=== PATIENT | male | born 1945 | race Caucasian/White ===

== ENCOUNTER 2022-05-02 20:21 | Inpatient (IN) | payer OTHER ==
[~2022-05-02] VITALS: Ht 165.1 cm; Wt 59.0 kg
--- NOTE | 2022-05-02 20:45 | NUR ---
pt bib ra for c/o left hip pain.
[2022-05-02] MEDS ORDERED: SIMV10TA98 PO (21:07)
[2022-05-02] MEDS ORDERED: DABI110C PO (21:07)
[2022-05-02] MEDS ORDERED: LOSA50TA39 PO (21:07)
[2022-05-02] MEDS ORDERED: METF-440 PO (21:07)
[2022-05-02] MEDS ORDERED: TERA5CAP4 PO (21:07)
[2022-05-02] MEDS ORDERED: FINA5TAB11 PO (21:07)
[2022-05-02] MEDS ORDERED: MORPHINE SULFATE 2 MG/1 ML DISP.SYRIN IM ONE (21:15)
[2022-05-02] MEDS ORDERED: KETOROLAC TROMETHAMINE 30 MG INJ IM ONE (21:15)
--- NOTE | 2022-05-02 21:27 | NUR ---
pt taken for cat scan.
[2022-05-02 21:41] LABS: *BILIRUBIN,URIN NEGATIVE (NEGATIVE); *BLOOD, URINE 1+ (NEGATIVE); *CLARITY,URINE CLEAR (CLEAR); *COLOR,URINE STRAW (YELLOW); *KETONES,URINE NEGATIVE (NEGATIVE); *UROBILINOGEN,URINE 0.2 E.U./dl (NORMAL); LEUKOCYTE ESTERASE ,URINE NEGATIVE (NEGATIVE); NITRITE, URINE NEGATIVE (NEGATIVE); PH,URINE 8.5 (5.0-8.0); UGLUCOSE NEGATIVE (NEGATIVE)
--- NOTE | 2022-05-02 21:44 | NUR ---
pt returned from cat scan.
[2022-05-02 21:47] LABS: BACTERIA,URINE NONE SEEN /HPF (NONE SEEN); SQUAMOUS EPITHELIAL CELL,UR NONE SEEN /HPF (NONE SEEN); WBC,URINE NONE SEEN /HPF (0-3)
[2022-05-02 21:52] LABS: HEMATOCRIT 37.6 % (36.7-47.1); MEAN CORPUSCULAR HEMOGLOBIN 31.4 uug (23.8-33.4); MEAN CORPUSCULAR VOLUME 91.9 fL (73.0-96.2); PLATELET COUNT (AUTO) 135 K/uL (152-348)
[2022-05-02 22:05] LABS: CARBON DIOXIDE 30 mmol/L (21-32); CHLORIDE 103 mmol/L (98-107); CREATININE 1.1 mg/dL (0.6-1.3); GLUCOSE 141 mg/dL (74-106); POTASSIUM 3.7 mmol/L (3.5-5.1); UREA NITROGEN, BLOOD 14 mg/dL (7-18)
[2022-05-02 22:14] LABS: ALANINE AMINOTRANSFERASE 32 U/L (16-63); ALKALINE PHOSPHATASE 77 U/L (50-136); ASPARTATE AMINOTRANSFERASE 25 U/L (15-37); BILIRUBIN,DIRECT 0.2 mg/dL (0.0-0.2); BILIRUBIN,TOTAL 0.7 mg/dL (0.2-1.0)
[2022-05-02 22:22] LABS: ETHANOL < 3 MG/DL (0-0)
--- NOTE | 2022-05-02 22:59 | NUR ---
call to [facility] for possible tr. requested by Dr. Romero.
--- NOTE | 2022-05-02 23:19 | NUR ---
multiple calls were placed to [place] unable to reach anyone.
[2022-05-02] MEDS ORDERED: MORPHINE SULFATE 2 MG/1 ML DISP.SYRIN ONE (23:28)
[2022-05-02] MEDS ORDERED: MORPHINE SULFATE 2 MG/1 ML DISP.SYRIN IV ONE (23:30)
--- NOTE | 2022-05-02 23:30 | NUR ---
[facility] Thelma sung called update on status of pt given.
--- NOTE | 2022-05-03 00:14 | NUR ---
Informed by Dr. Romero that pt is accepted to [place].
[2022-05-03] MEDS ORDERED: MORPHINE SULFATE 2 MG/1 ML DISP.SYRIN IV ONE ×2 (00:30→06:30)
[2022-05-03] MEDS ORDERED: MORPHINE SULFATE 2 MG/1 ML DISP.SYRIN ONE ×2 (00:51→06:39)
--- NOTE | 2022-05-03 02:55 | NUR ---
[facility] still no accepting md noted and no accepting hospital accepted at this time.
--- NOTE | 2022-05-03 03:11 | NUR ---
MEETA FROM [facility] CALLED BACK AND STATED THEY HAVE NO BEDS AVAILABLE IN ANY [place]. HE GAVE AUTH TO STAY.
--- NOTE | 2022-05-03 05:16 | NUR ---
Paged Epic panel directional driller for admission of patient. Waiting on Allison Hendricks NP to call back.
--- NOTE | 2022-05-03 05:23 | NUR ---
pt resting, denies pain.
--- NOTE | 2022-05-03 05:42 | NUR ---
call back was received from TONIA Daniel. Call was placed to Dr. Becker ortho surgeon.
[2022-05-03] MEDS ORDERED: MORPHINE SULFATE 2 MG/1 ML DISP.SYRIN IV PRN (05:45)
[2022-05-03] MEDS ORDERED: REMEDY ESSENTIAL ZINC PASTE 113 GM TP PRN (05:45)
[2022-05-03] MEDS ORDERED: ONDANSETRON 4 MG/2 ML VIAL IV PRN (05:45)
[2022-05-03] MEDS ORDERED: MAGNESIUM HYDROXIDE 30 ML LIQUID UDC PO PRN (05:45)
[2022-05-03] MEDS ORDERED: IV D5/ 0.9% NACL 1,000 ML IV PRN (06:00)
--- NOTE | 2022-05-03 08:48 | NUR ---
DR Becker, surgeon, spoke to Dr Abdi.
[2022-05-03 10:06] VITALS: BP 169/65
[2022-05-03] MEDS: PANTOPRAZOLE SODIUM 40 MG VIAL IV SCH (10:25)
[2022-05-03] MEDS: LOSARTAN POTASSIUM 50 MG TABLET PO SCH ×2 (10:26→21:19)
--- NOTE | 2022-05-03 11:31 | NUR ---
Patient alert, oriented x4, no sob, resp even nonlabored, skin warm and dry to touch, no skin issues noted, kept NPO, only losartan administered with sip of water, okayed with dr soria to give one tablet of losartan with sip of water. asked OR nurse if mayer need to be inserted, per OR nurse, no need to insert Mayer,
[2022-05-03] MEDS ORDERED: BUPIVACAINE/EPI PF 0.5% 10 ML VIAL ONE (11:34)
--- NOTE | 2022-05-03 12:00 | NUR ---
Patient taken to OR by OR nurses
[2022-05-03] MEDS ORDERED: FENTANYL CITRATE 100 MCG/2 ML AMPUL ONE (12:36)
[2022-05-03] MEDS ORDERED: HYDROMORPHONE 2 MG/1 ML DISP.SYRIN ONE (12:37)
[2022-05-03] MEDS ORDERED: ROCURONIUM BROMIDE 50 MG/5 ML VIAL ONE (12:37)
[2022-05-03] MEDS ORDERED: MIDAZOLAM HCL 2 MG/2 ML VIAL ONE (12:37)
[2022-05-03] MEDS ORDERED: VANCOMYCIN 1000 MG VIAL ONE (13:30)
[2022-05-03] MEDS ORDERED: GLYCOPYRROLATE 0.2 MG/ML VIAL IJ ONE (14:00)
[2022-05-03] MEDS ORDERED: PROPOFOL 200 MG/20 ML BOTTLE IV ONE (14:00)
[2022-05-03] MEDS ORDERED: METOCLOPRAMIDE HCL 10 MG/2 ML VIAL IV ONE (14:00)
[2022-05-03] MEDS ORDERED: ONDANSETRON 4 MG/2 ML VIAL IV ONE (14:00)
[2022-05-03] MEDS ORDERED: LIDOCAINE-MPF 2% 5 ML VIAL IJ ONE (14:00)
[2022-05-03] MEDS ORDERED: NEOSTIGMINE METHYLSULFATE 10 MG/10 ML VIAL IM ONE (14:00)
[2022-05-03] MEDS ORDERED: CEFAZOLIN 1 G VIAL IM ONE (14:00)
[2022-05-03] MEDS ORDERED: IV D5W-0.45% NS +20 KCL 1,000 ML IV PRN (15:15)
[2022-05-03 16:16] VITALS: BP 151/62
--- NOTE | 2022-05-03 16:16 | NUR ---
patient is back from after surgery, left hip hemiarthroplasty, dressing intact, no signs and symptoms of bleeding noted, patient desaturated to low 80s, supplemental oxygen provided, saturating at 98%, intermittently awake. continue to monitor Addendum: 05/03/22 at 1636 by MARISEL SHAW RN, RN Hip precautions are in place
--- NOTE | 2022-05-03 17:58 | NUR ---
patient is sleeping intermittently and still noted with confusion, on 2 liter nasal canula, saturating 97%, family was here, this technical writer released the soft wrist restrained, patient removed the nasal canula and desaturated to low 80s, soft wrist restrain instated again. left pedal pulse is strong, capilarry refit is less than 3 seconds, no distress noted, hip replacement precautions are in place.
--- NOTE | 2022-05-03 19:30 | NUR ---
Received patient lying in bed. Asleep but arouse to verbal stimuli. Alert to self only at this time. Speech garbled. In no acute distress. No signs or symptoms of pain or SOB. On O2 at 2LPM via NC in place. O2 sat at 100%. IV site on left AC intact and patent. IVF infusing. NSR on tele with HR of 68/min. Abduction pillow kin place. Safety measure initiated and call light within reached. Continue to monitor.
[2022-05-03 20:42] VITALS: BP 149/80
[2022-05-03] MEDS: CEFAZOLIN 1 G in IV DEXTROSE 5% 50 ML IV SCH (21:11)
[2022-05-04] MEDS: MORPHINE SULFATE 4 MG/1 ML DISP.SYRIN IV PRN ×2 (00:17→05:22)
[2022-05-04 04:17] VITALS: BP 143/65
[2022-05-04] MEDS: CEFAZOLIN 1 G in IV DEXTROSE 5% 50 ML IV SCH (04:20)
--- NOTE | 2022-05-04 05:01 | NUR ---
Patient more awake at this time. Check for any urine output but none found. Bladder scan done and shows >389ml of urine in the bladder. Patient is trying to go on a urinal but unable to. Informed SUBPOENA SERVER Eladio and ordered to place Crowley catheter. Order noted and will carry out.
[2022-05-04 06:57] LABS: HEMATOCRIT 33.5 % (36.7-47.1); MEAN CORPUSCULAR HEMOGLOBIN 31.3 uug (23.8-33.4); MEAN CORPUSCULAR VOLUME 92.5 fL (73.0-96.2); PLATELET COUNT (AUTO) 109 K/uL (152-348)
[2022-05-04 07:09] LABS: CARBON DIOXIDE 30 mmol/L (21-32); CHLORIDE 102 mmol/L (98-107); CREATININE 1.5 mg/dL (0.6-1.3); GLUCOSE 208 mg/dL (74-106); MAGNESIUM 1.8 mg/dL (1.8-2.4); PHOSPHOROUS 4.4 mg/dL (2.5-4.9); POTASSIUM 4.7 mmol/L (3.5-5.1); UREA NITROGEN, BLOOD 22 mg/dL (7-18)
--- NOTE | 2022-05-04 08:30 | NUR ---
RECEIVED PT ON BEDALERT AND AWAKE. PT HAVE LEFT HAND RESTRAINT. NOC SHIFT REPORTS THAT PT IS PULLING LINES LAST NIGHT.PT ON 2L NC SATURATING AT 97-98%. IV ACCESS ON LAC 20G INTACT AND PATENT. NO SOB ; NO -PAIN COMPLAIN.
[2022-05-04] MEDS: PANTOPRAZOLE SODIUM 40 MG VIAL IV SCH (08:42)
[2022-05-04] MEDS: LOSARTAN POTASSIUM 50 MG TABLET PO SCH ×2 (08:43→20:32)
--- NOTE | 2022-05-04 09:00 | NUR ---
DC RESTRAINT PT ALERT AND ORIENTED AND COMPLIANCE. SWITCHED TO SOFT DIET; PT TOLERATED DIET
[2022-05-04 11:54] VITALS: BP 138/63
[2022-05-04] MEDS: ACETAMINOPHEN 325 MG TABLET PO PRN ×2 (11:57→16:46)
--- NOTE | 2022-05-04 12:00 | NUR ---
SLIGHT ELEVATED TEMP 99.6. GAVE PRN TYLENOL WILL REASSESS AFTER 1HR
[2022-05-04] MEDS ORDERED: TAMS-3 PO (14:10)
[2022-05-04] MEDS ORDERED: CARV12.5 PO (14:10)
[2022-05-04] MEDS ORDERED: MEMA10TA PO (14:10)
[2022-05-04 15:35] VITALS: BP 110/57
[2022-05-04] MEDS: IV NS 1000 ML 1,000 ML IV PRN (16:46)
[2022-05-04] MEDS: HEPARIN SODIUM,PORCINE 5,000 UNITS/ML VIAL SQ SCH (20:34)
[2022-05-04 21:31] VITALS: BP 109/56
[2022-05-05 00:16] VITALS: BP 155/79
[2022-05-05 04:45] VITALS: BP 137/78
--- NOTE | 2022-05-05 04:47 | NUR ---
Pt slept throughout the night, denies pain at this time. No distress noted. Able to make needs known. IV site intact, running ordered fluids. Crowley draining to gravity. Safety maintained. Will endorse to day shift.
[2022-05-05] MEDS: PANTOPRAZOLE SODIUM 40 MG TABLET.DR PO SCH (06:13)
[2022-05-05] MEDS: IV NS 1000 ML 1,000 ML IV PRN ×2 (06:27→20:21)
[2022-05-05 06:41] LABS: MEAN CORPUSCULAR HEMOGLOBIN 31.5 uug (23.8-33.4); MEAN CORPUSCULAR VOLUME 91.7 fL (73.0-96.2); PLATELET COUNT (AUTO) 85 K/uL (152-348)
[2022-05-05 07:26] LABS: CARBON DIOXIDE 27 mmol/L (21-32); CHLORIDE 102 mmol/L (98-107); CREATININE 1.5 mg/dL (0.6-1.3); GLUCOSE 187 mg/dL (74-106); POTASSIUM 4.1 mmol/L (3.5-5.1); UREA NITROGEN, BLOOD 27 mg/dL (7-18)
[2022-05-05 07:45] LABS: MAGNESIUM 1.9 mg/dL (1.8-2.4); PHOSPHOROUS 3.1 mg/dL (2.5-4.9)
[2022-05-05] MEDS ORDERED: LACTULOSE 20 G/30 ML LIQUID UDC PO ONE (10:00)
[2022-05-05] MEDS: LOSARTAN POTASSIUM 50 MG TABLET PO SCH ×3 (10:52→22:05)
[2022-05-05] MEDS: HEPARIN SODIUM,PORCINE 5,000 UNITS/ML VIAL SQ SCH (10:54)
[2022-05-05] MEDS: ACETAMINOPHEN 325 MG TABLET PO PRN (11:26)
[2022-05-05 11:51] LABS: LYMPHOCYTES % (MANUAL) 11 % (20-40); MONOCYTES % (MANUAL) 9 % (2-10); NEUTROPHILS % (MANUAL) 80 % (42-75)
[2022-05-05 15:26] VITALS: BP 156/60
[2022-05-05] MEDS ORDERED: BISACODYL 10 MG SUPP.RECT RC ONE (17:45)
--- NOTE | 2022-05-05 17:58 | NUR ---
Pt complaining of abdominal pain and constipation from no BM for several days. Provided lactulose during shift but still no BM. Notified MD and obtained one time order of suppository dulcolax. Educated pt about medication, will endorse to arcade technician to administer PRN milk of magnesia if no BM. Comfort measures provided, call light within reach. Will continue to monitor.
[2022-05-05 20:00] VITALS: BP 145/70
[2022-05-05] MEDS: MORPHINE SULFATE 4 MG/1 ML DISP.SYRIN IV PRN (21:12)
--- NOTE | 2022-05-05 21:15 | NUR ---
PATIENT AWAKE IN BED. A/O X3. VS WNL. PATIENT HAD LARGE BM. F/C INTACT AND PATENT. DENIES ANY SOB. NO RESP. DISTRESS NOTED. DRESSING NOTED TO LEFT HIP, C/D/I. ABDUCTION PILLOW IN PLACE. NEW IV STARTED TO LEFT WRIST #22 GAUGE, WITH IVF INFUSING WELL. PATIENT C/O PAIN, GIVEN MORPHINE 4MG IV PRN PER LIST OF FIRST JOB IDEAS. CALL LIGHT IN REACH. ALL NEEDS ATTENDED. WILL CONTINUE TO MONITOR AND ASSESS.
[2022-05-06 04:00] VITALS: BP 163/71
[2022-05-06] MEDS: PANTOPRAZOLE SODIUM 40 MG TABLET.DR PO SCH (06:01)
[2022-05-06 07:37] LABS: HEMATOCRIT 27.1 % (36.7-47.1); MEAN CORPUSCULAR HEMOGLOBIN 32.2 uug (23.8-33.4); MEAN CORPUSCULAR VOLUME 92.1 fL (73.0-96.2); PLATELET COUNT (AUTO) 101 K/uL (152-348)
[2022-05-06 07:48] LABS: CREATININE 1.1 mg/dL (0.6-1.3)
[2022-05-06 08:03] LABS: MAGNESIUM 2.1 mg/dL (1.8-2.4); PHOSPHOROUS 2.2 mg/dL (2.5-4.9)
[2022-05-06] MEDS: LOSARTAN POTASSIUM 50 MG TABLET PO SCH ×2 (09:20→20:29)
[2022-05-06] MEDS ORDERED: DABIGATRAN ETEXILATE MESYLATE 150 MG CAPSULE PO SCH (11:15)
[2022-05-06 11:30] VITALS: BP 175/71
[2022-05-06] MEDS: TAMSULOSIN HCL 0.4 MG CAP.SR.24H PO SCH (14:46)
[2022-05-06] MEDS: MEMANTINE HCL 10 MG TABLET PO SCH ×2 (14:47→17:43)
[2022-05-06] MEDS: FINASTERIDE 5 MG TABLET PO SCH (14:47)
[2022-05-06] MEDS: METFORMIN HCL 500 MG TABLET PO SCH ×3 (14:47→17:46)
[2022-05-06 15:57] VITALS: BP 161/70
[2022-05-06] MEDS: IV NS 1000 ML 1,000 ML IV PRN (16:32)
[2022-05-06] MEDS: SENNOSIDES/DOCUSATE SODIUM TABLET PO SCH (16:40)
[2022-05-06] MEDS ORDERED: NEUTRA PHOS PACKET PO ONE (17:00)
[2022-05-06 20:00] VITALS: BP 151/54
[2022-05-06] MEDS: ACETAMINOPHEN 325 MG TABLET PO PRN (20:28)
[2022-05-07] MEDS: ACETAMINOPHEN 325 MG TABLET PO PRN (03:37)
[2022-05-07 05:00] VITALS: BP 144/61
[2022-05-07] MEDS: PANTOPRAZOLE SODIUM 40 MG TABLET.DR PO SCH (06:33)
[2022-05-07 07:25] LABS: HEMATOCRIT 25.6 % (36.7-47.1); MEAN CORPUSCULAR VOLUME 91.8 fL (73.0-96.2); PLATELET COUNT (AUTO) 120 K/uL (152-348)
[2022-05-07 07:40] LABS: PHOSPHOROUS 2.8 mg/dL (2.5-4.9); POTASSIUM 3.5 mmol/L (3.5-5.1)
[2022-05-07] MEDS: MEMANTINE HCL 10 MG TABLET PO SCH ×2 (08:51→16:53)
[2022-05-07] MEDS: TAMSULOSIN HCL 0.4 MG CAP.SR.24H PO SCH (08:51)
[2022-05-07] MEDS: SENNOSIDES/DOCUSATE SODIUM TABLET PO SCH (08:51)
[2022-05-07] MEDS: METFORMIN HCL 500 MG TABLET PO SCH ×2 (08:52→16:53)
[2022-05-07] MEDS: LOSARTAN POTASSIUM 50 MG TABLET PO SCH ×2 (08:52→21:04)
[2022-05-07] MEDS: FINASTERIDE 5 MG TABLET PO SCH (08:54)
--- NOTE | 2022-05-07 09:00 | NUR ---
pt awake alert and oriented, complaining of being constipated, took meds without any problem, left hip dsg dry and intact, abduction pillow in place, hip precautions observed, informed hospitalist of c/o constipation with orders- carried out, call light withinreachs
[2022-05-07] MEDS ORDERED: BISACODYL 10 MG SUPP.RECT RC ONE (09:15)
[2022-05-07] MEDS ORDERED: LACTULOSE 20 G/30 ML LIQUID UDC PO ONE (09:15)
[2022-05-07] MEDS ORDERED: SORBITOL 70% SOLUTION 30 ML UDC PO ONE (09:15)
[2022-05-07] MEDS ORDERED: POTASSIUM CHLORIDE 20 MEQ POWDER PACKET PO ONE (10:45)
[2022-05-07 11:00] VITALS: BP 127/61
--- NOTE | 2022-05-07 13:00 | NUR ---
noted some dry cough, incentive spirometry reinforced and explained importance- verbalized understanding did up to 1200-1500ml x 10, instructed to be done every hour, verbalized understanding
[2022-05-07] MEDS: IV NS 1000 ML 1,000 ML IV PRN (15:18)
[2022-05-07 16:00] VITALS: BP 127/73
--- NOTE | 2022-05-07 18:44 | NUR ---
incontinent of large amount of stool this shift, washed and kept clean and dry, hip precautions observed, needs attended and met, call light within reach, incentive spirometry done q 1h -
[2022-05-07 20:07] VITALS: BP 163/68
[2022-05-08] MEDS: MORPHINE SULFATE 4 MG/1 ML DISP.SYRIN IV PRN (02:50)
[2022-05-08 04:00] VITALS: BP 116/84
[2022-05-08] MEDS: IV NS 1000 ML 1,000 ML IV PRN (04:50)
[2022-05-08] MEDS: PANTOPRAZOLE SODIUM 40 MG TABLET.DR PO SCH (06:33)
--- NOTE | 2022-05-08 08:00 | NUR ---
Pt on abduction pillow. Pt alert and oriented x 4. Reinforce hip dislocation precautions. Pt denies any c/o pain. Bed Alarm on. Discussed proper pain managemnet with patient. PT verbalized understanding.
[2022-05-08] MEDS: MEMANTINE HCL 10 MG TABLET PO SCH ×2 (08:33→17:22)
[2022-05-08] MEDS: TAMSULOSIN HCL 0.4 MG CAP.SR.24H PO SCH (08:33)
[2022-05-08] MEDS: METFORMIN HCL 500 MG TABLET PO SCH ×2 (08:33→17:22)
[2022-05-08] MEDS: LOSARTAN POTASSIUM 50 MG TABLET PO SCH ×2 (08:33→20:20)
[2022-05-08] MEDS: SENNOSIDES/DOCUSATE SODIUM TABLET PO SCH (08:33)
[2022-05-08] MEDS: FINASTERIDE 5 MG TABLET PO SCH (08:33)
--- NOTE | 2022-05-08 12:00 | NUR ---
Pt is in no acute distress. call light is within reach.
[2022-05-08 12:09] VITALS: BP 174/65
[2022-05-08] MEDS: ENOXAPARIN SODIUM 40 MG/0.4 ML DISP.SYRIN SQ SCH (12:41)
[2022-05-08 16:12] VITALS: BP 168/68
--- NOTE | 2022-05-08 18:23 | NUR ---
Pt tolerated physical therapy today. Pt is in no acute distress. Pt tolerating soft finely chopped diet better than prior secondary to pt has not teeth.
[2022-05-08 20:03] VITALS: BP 170/64
[2022-05-08] MEDS ORDERED: SIMVASTATIN 10 MG TABLET PO SCH (21:00)
[2022-05-09] VITALS: BP 150/68
[2022-05-09] MEDS: ACETAMINOPHEN 325 MG TABLET PO PRN ×2 (02:04→16:44)
[2022-05-09 04:03] VITALS: BP 154/78
[2022-05-09] MEDS: PANTOPRAZOLE SODIUM 40 MG TABLET.DR PO SCH (06:29)
[2022-05-09 06:48] LABS: HEMATOCRIT 24.9 % (36.7-47.1); MEAN CORPUSCULAR HEMOGLOBIN 31.9 uug (23.8-33.4); PLATELET COUNT (AUTO) 176 K/uL (152-348)
[2022-05-09 07:09] LABS: MAGNESIUM 1.7 mg/dL (1.8-2.4); PHOSPHOROUS 3.8 mg/dL (2.5-4.9); POTASSIUM 3.4 mmol/L (3.5-5.1)
--- NOTE | 2022-05-09 08:00 | NUR ---
AWAKE ALERT AND VERBALLY RESPONSIVE FORGETFUL. REQUIRES MAX ASSIST WITH ADLS. CONTINUE PT, OT. SEEN BY HOSPITALIST REVIEWED LABS AND REPLACED
[2022-05-09] MEDS: TAMSULOSIN HCL 0.4 MG CAP.SR.24H PO SCH (08:12)
[2022-05-09] MEDS: FINASTERIDE 5 MG TABLET PO SCH (08:12)
[2022-05-09] MEDS: LOSARTAN POTASSIUM 50 MG TABLET PO SCH (08:12)
[2022-05-09] MEDS: MEMANTINE HCL 10 MG TABLET PO SCH ×2 (08:12→16:44)
[2022-05-09] MEDS: METFORMIN HCL 500 MG TABLET PO SCH ×2 (08:12→16:44)
[2022-05-09] MEDS: SENNOSIDES/DOCUSATE SODIUM TABLET PO SCH (08:13)
[2022-05-09] MEDS: ENOXAPARIN SODIUM 40 MG/0.4 ML DISP.SYRIN SQ SCH (08:14)
[2022-05-09] MEDS ORDERED: POTASSIUM CHLORIDE 20 MEQ POWDER PACKET GT ONE (08:45)
[2022-05-09] MEDS ORDERED: POTASSIUM CHLORIDE 20 MEQ TAB.PRT.SR PO ONE (08:45)
[2022-05-09] MEDS ORDERED: ENOXAPARIN SODIUM 40 MG/0.4 ML DISP.SYRIN SQ SCH (09:00)
[2022-05-09] MEDS ORDERED: DABIGATRAN ETEXILATE MESYLATE 150 MG CAPSULE PO SCH (09:00)
[2022-05-09] MEDS: MAGNESIUM SULFATE/D5W 100 ML IV SCH ×2 (10:19→11:06)
[2022-05-09 11:31] VITALS: BP 158/63
--- NOTE | 2022-05-09 12:00 | NUR ---
NO ACUTE CHANGE FROM MORNING ASSESSMENT
[2022-05-09] MEDS ORDERED: METF-440 PO (12:19)
[2022-05-09] MEDS ORDERED: SENN1TAB92 PO (12:19)
[2022-05-09] MEDS ORDERED: SIMV10TA98 PO (12:19)
[2022-05-09] MEDS ORDERED: FINA5TAB11 PO (12:19)
[2022-05-09] MEDS ORDERED: PANT40TA49 PO (12:19)
[2022-05-09] MEDS ORDERED: ACET325T53 PO (12:19)
[2022-05-09] MEDS ORDERED: Patient May Use Own Med- Md Ok PO (12:19)
[2022-05-09] MEDS ORDERED: MEMA10TA PO (12:19)
[2022-05-09] MEDS ORDERED: LOSA50TA3 PO (12:19)
[2022-05-09] MEDS ORDERED: TAMS-3 PO (12:19)
--- NOTE | 2022-05-09 14:12 | NUR ---
AWAITING PLACEMENT PER TUG BOAT ENGINEER
[2022-05-09 16:00] VITALS: BP 164/71
[2022-05-09] MEDS ORDERED: CLONIDINE HCL 0.1 MG TABLET PO ONE (16:45)
--- NOTE | 2022-05-09 18:40 | NUR ---
LEFT HIP INCISION WITH DERMABOND, NO PICTURE DONE AND PATIENT TO FOLLOW-UP WITH DR IKM. REPORT GIVEN TO [facility] (YOLIE FOR FOLLOW-UP)
[2022-05-09 20:03] VITALS: BP 118/51
--- NOTE | 2022-05-09 20:41 | NUR ---
Patient picked up by [facility] to transport patient to [facility]) in stable condition.All discharge papers and belongings given to patient.Patient denies pain or discomfort. On Ra saturating well at 97 %.VSS
== END 2022-05-09 20:35 | DRG 521 ==
LOC: ER 20:24 → MEDSURG3 05-03 08:26 → TELE3 05-03 11:39 → MEDSURG3 05-05 08:55
PROVIDERS: ADMIT Nurse Practitioner Acute Care; ATTEND Nurse Practitioner Acute Care
PROC: 0SRS0JA Replacement of Left Hip Joint, Femoral Surface with Synthetic Substitute, Uncemented, Open Approach (ICD-10-PCS; principal; 2022-05-03)
DX: S72.002A Fracture of unspecified part of neck of left femur, initial encounter for closed fracture (principal); N17.0 Acute kidney failure with tubular necrosis; I48.0 Paroxysmal atrial fibrillation; I44.0 Atrioventricular block, first degree; Z86.73 Personal history of transient ischemic attack (TIA), and cerebral infarction without residual deficits; W19.XXXA Unspecified fall, initial encounter; Y93.9 Activity, unspecified; Y92.009 Unspecified place in unspecified non-institutional (private) residence as the place of occurrence of the external cause
CPT/HCPCS: 36415; 70030-TC; 70450; 71045; 73501; 73502; 83735; 84100; 84443; 84484; 85025; 93005; 93307; 97161; A4649; A4663; C1776; C9113; G0378; G0480; J0690; J1170; J1644; J1650; J1885; J2250; J2270; J2405; J2765; J3010; J3370; J3475; J3490; J7040; J7042